=== PATIENT | male | born 1975 | race Two or more races ===

== ENCOUNTER → 2024-03-13 | Emergency (ER) | payer OTHER ==
[~2024-03-13] VITALS: Ht 152.4 cm; Wt 71.2 kg
[~2024-03-13] MED LIST: ALBUTEROL FS 2.5 MG/3 ML VIAL.NEB ONE; ATOR20TA PO; CHOL500062 PO; DOLU50TA PO; EMTR1TAB17 PO; ENOXAPARIN SODIUM 40 MG/0.4 ML DISP.SYRIN SQ SCH; FLUC200T PO; GLIP5TAB13 PO; IPRATROPIUM NEB FS 0.5 MG/2.5 ML AMPUL.NEB ONE; IV D5/ 0.9% NACL 1,000 ML IV PRN; LEVOFLOXACIN 500 MG /D5W 100ML 100 ML IV SCH; OLAN5TAB3 PO; SITA1TAB2 PO; methylPREDNISolone SOD SUCC 125 MG/2ML VIAL IV SCH; methylPREDNISolone SOD SUCC 125 MG/2ML VIAL ONE
[2024-03-13] MEDS: methylPREDNISolone SOD SUCC 125 MG/2ML VIAL IV ONE (07:30)
[2024-03-13 07:51] LABS: BASOPHILS % (AUTO) 0.4 % (0.0-2.0); EOSINOPHILS # (AUTO) 0.1 K/uL (0.0-0.7); HEMATOCRIT 47 % (39-51); HEMOGLOBIN 16.1 g/dL (13.5-17.5); LYMPHOCYTES # (AUTO) 1.9 K/uL (0.8-4.8); LYMPHOCYTES % (AUTO) 15.7 % (20.0-44.0); MEAN CORPUSCULAR HEMOGLOBIN 32 PG (26.0-33.0); MEAN CORPUSCULAR HGB CONC 34 g/dl (31.0-36.0); MEAN CORPUSCULAR VOLUME 94 fL (80-96); NEUTROPHILS # (AUTO) 9.1 K/uL (1.8-8.9); NEUTROPHILS % (AUTO) 74.9 % (43.0-81.0); PLATELET COUNT (AUTO) 171 K/uL (150-450); RED CELL DISTRIBUTION WIDTH 14.4 % (11.5-15.0); WHITE BLOOD COUNT (AUTO) 12.2 K/uL (4.3-11.0)
[2024-03-13 07:54] VITALS: O2SAT 96
[2024-03-13] MEDS: IPRATROPIUM NEB FS 0.5 MG/2.5 ML AMPUL.NEB NEB ONE (07:54)
[2024-03-13] MEDS: ALBUTEROL FS 2.5 MG/3 ML VIAL.NEB NEB ONE (07:54)
[2024-03-13] MEDS: CEFTRIAXONE 1GM BAG (ER ONLY) 50 ML IV ONE (08:00)
[2024-03-13 08:02] LABS: INR 0.98 (0.91-1.10); PARTIAL THROMBOPLASTIN TIME 26.8 SEC (24.3-34.3); PROTHROMBIN TIME 10.4 SECS (9.2-11.1)
[2024-03-13 08:03] LABS: CALCIUM, SERUM 8.9 mg/dL (8.5-10.1); CARBON DIOXIDE 26 mmol/L (21-32); CHLORIDE 101 mmol/L (98-107); CREATININE 1.2 mg/dL (0.6-1.3); GLUCOSE 178 mg/dL (74-106); POTASSIUM 4.1 mmol/L (3.5-5.1); SODIUM SERUM 140 mmol/L (136-145); UREA NITROGEN, BLOOD 11 mg/dL (7-18)
[2024-03-13 08:11] LABS: LACTIC ACID 3.2 mmol/L (0.4-2.0)
[2024-03-13 08:18] LABS: ALANINE AMINOTRANSFERASE 148 U/L (12-78); ALBUMIN 3.7 g/dL (3.4-5.0); ALKALINE PHOSPHATASE 164 U/L (46-116); ASPARTATE AMINOTRANSFERASE 76 U/L (15-37); BILIRUBIN,DIRECT 0.1 mg/dL (0.0-0.2); BILIRUBIN,TOTAL 0.5 mg/dL (0.2-1.0); TOTAL PROTEIN, SERUM 8.1 g/dL (6.4-8.2)
[2024-03-13] MEDS: AZITHROMYCIN 500 MG in IV D5W 250 ML IV ONE (08:30)
[2024-03-13] MEDS: IV NS 0.9% 1,000 ML BAG IV ONE ×2 (08:30)
[2024-03-13 08:55] VITALS: O2SAT 100
[2024-03-13] MEDS: IPRATROPIUM NEB FS 0.5 MG/2.5 ML AMPUL.NEB NEB SCH (13:30)
[2024-03-13 16:33] VITALS: BP 122/75; TEMP 98; O2SAT 94
== END | disposition short-term general hospital (02) ==
LOC: ER 07:19
DX: A41.9 Sepsis, unspecified organism (principal); R65.20 Severe sepsis without septic shock; J96.01 Acute respiratory failure with hypoxia; R00.0 Tachycardia, unspecified; D72.829 Elevated white blood cell count, unspecified; R74.01 Elevation of levels of liver transaminase levels; E11.65 Type 2 diabetes mellitus with hyperglycemia; Z20.822 Contact with and (suspected) exposure to COVID-19
CPT/HCPCS: 99291; 96365; 96367; 96375; 87426; 93005; 82803; 71045; 84145; 85025; 80048; 87040 ×2; 83605 ×2; 80076; 36415; 84484; 85730; 83880; 36600; 94640; 94799; J2919; J7030; J7040; J0456; J0696; J7060